=== PATIENT | male | born 1950 | race Caucasian/White ===

== ENCOUNTER → 2023-02-14 | Outpatient (CLI) | payer MEDICARE, OTHER ==
[~2023-02-14] MED LIST: Aspirin EC81 MG PO; Depo-Testos200 MG/ML IM; LOSA25 PO; SEA-OMEGA 1,001 EACH PO; Simvastatin10 MG PO
[2023-02-14 14:09] LABS: Creatinine Urine 82.2 mg/dL (27.00-270.00)
[2023-02-14 20:16] LABS: Calcium, Urine 11.3 mg/dL (< 17.5); Calcium, Urine Calculation 203.4 mg/24hrs (42.0-353.0)
== END | disposition home or self-care (01) ==
LOC: LAB 12:03 → LAB SHORT 12:03
PROVIDERS: Internal Medicine Endocrinology, Diabetes & Metabolism
DX: R82.994 Hypercalciuria (principal)
CPT/HCPCS: 81050; 82340; 82570

== ENCOUNTER → 2025-02-09 | Outpatient (CLI) | payer MEDICARE, OTHER ==
[2025-02-09 17:26] LABS: Calcium, Urine 12.4 mg/dL (< 17.5)
[2025-02-09 17:39] LABS: Creatinine Urine 59.2 mg/dL (27.00-270.00)
== END ==
LOC: LAB 10:00 → LAB SHORT 10:00
PROVIDERS: Internal Medicine Endocrinology, Diabetes & Metabolism
DX: E21.0 Primary hyperparathyroidism (principal)
CPT/HCPCS: 81050; 82340; 82570